=== PATIENT | male | born 1975 | race Caucasian/White ===

== ENCOUNTER 2019-01-31 11:58 | Emergency (ER) | payer OTHER ==
[~2019-01-31] VITALS: Ht 170.2 cm; Wt 86.4 kg
[2019-01-31 11:58] VITALS: BP 143/65
--- NOTE | 2019-01-31 13:00 | REP ---
RIGHT SHOULDER, THREE VIEWS: HISTORY: Injury. There is no acute fracture or dislocation. The joint spaces are normal in appearance. IMPRESSION: There is no acute fracture or dislocation. Electronically Signed by Brad Lao MD 01/31/2019 01:02 P
== END 2019-01-31 13:00 | disposition home or self-care (01) ==
LOC: M ED 11:58
DX: S49.91XA Unspecified injury of right shoulder and upper arm, initial encounter (principal); X50.0XXA Overexertion from strenuous movement or load, initial encounter; Y92.89 Other specified places as the place of occurrence of the external cause

== ENCOUNTER → 2021-01-11 | Outpatient (CLI) | payer OTHER ==
--- NOTE | 2021-01-11 12:38 | REP ---
INDICATION: F/U FX. COMPARISON: None. TECHNIQUE: AP, lateral, bilateral oblique views of the right hand. FINDINGS: There is a comminuted mildly angulated fracture involving the 5th metacarpal bone (boxer's fracture) with overlying soft tissue swelling. Remainder of the examination is normal. IMPRESSION: Acute boxer's fracture 1st metacarpal bone. <Electronically signed by Mj Perez > 01/11/21 [id number]
== END ==
LOC: M SOG 11:29
PROVIDERS: ATTEND Orthopaedic Surgery Sports Medicine
DX: S62.336A Displaced fracture of neck of fifth metacarpal bone, right hand, initial encounter for closed fracture (principal); X58.XXXA Exposure to other specified factors, initial encounter; Y92.9 Unspecified place or not applicable; Y93.9 Activity, unspecified; Y99.9 Unspecified external cause status

== ENCOUNTER → 2021-01-25 | Outpatient (CLI) | payer OTHER ==
--- NOTE | 2021-01-25 13:53 | REP ---
INDICATION: F/U FX. COMPARISON: 01/11/2021 TECHNIQUE: Four views FINDINGS: The boxer's fracture seen previously has increased in angulation since the prior exam. There are no other significant changes. IMPRESSION: As above <Electronically signed by Tye Arias > 01/25/21 [id number]
== END ==
LOC: M SOG 13:17
PROVIDERS: ATTEND Orthopaedic Surgery Sports Medicine
DX: S62.336D Displaced fracture of neck of fifth metacarpal bone, right hand, subsequent encounter for fracture with routine healing (principal)

== ENCOUNTER → 2021-11-20 | Outpatient (REF) | payer OTHER | LOC: M LAB REF 08:27 | PROVIDERS: ATTEND Ophthalmology | DX: D23.111 Other benign neoplasm of skin of right upper eyelid, including canthus (principal) ==

== ENCOUNTER → 2025-06-23 | Day surgery (SDC) | payer OTHER ==
[~2025-06-23] VITALS: Ht 170.2 cm; Wt 83.9 kg
[~2025-06-23] MED LIST: ATOR1TAB21 PO; CETI-24 PO; LISI10TA22 PO; OMEP-173 PO; SEMA1PEN4 SQ
== END | disposition home or self-care (01) ==
LOC: M OPP 10:18
PROVIDERS: ATTEND Surgery
DX: Z53.9 Procedure and treatment not carried out, unspecified reason (principal)

== ENCOUNTER 2025-06-28 06:52 | Day surgery (SDC) | payer OTHER ==
[~2025-06-28] VITALS: Ht 170.2 cm; Wt 86.2 kg
[2025-06-28] MEDS ORDERED: LIDOCAINE 2% 100 MG/5 ML SDV (FOR ANES.) As Ordered ONE (07:41)
[2025-06-28 07:55] VITALS: TEMP 97.4
[2025-06-28 08:11] VITALS: BP 126/85; O2SAT 98
== END 2025-06-28 08:22 | disposition home or self-care (01) ==
LOC: M OPP 06:52
PROVIDERS: ATTEND Surgery
DX: Z12.11 Encounter for screening for malignant neoplasm of colon (principal); K64.0 First degree hemorrhoids; Z79.85 Long-term (current) use of injectable non-insulin antidiabetic drugs; Z79.899 Other long term (current) drug therapy

== ENCOUNTER → 2025-09-17 | Outpatient (CLI) | payer OTHER ==
[2025-09-17 09:10] LABS: PLATELET COUNT, AUTOMATED 286 10^3/uL (150-450)
[2025-09-17 09:24] LABS: ALT/SGPT 35 U/L (7.0-40); AST/SGOT 20 U/L (<34); CALCIUM LEVEL 9.5 MG/DL (8.5-10.1); CARBON DIOXIDE LEVEL 28 MMOL/L (20-31); CHLORIDE LEVEL 104 MMOL/L (98-107); CHOLESTEROL LEVEL 155 MG/DL (<200); CHOLESTEROL RISK RATIO 2.80 (<5); CREATININE FOR GFR 0.67 MG/DL (0.70-1.30); GLOMERULAR FILTRATION RATE > 90.0 (>56); LDL CHOLESTEROL 90.0 MG/DL (<100); NON-HDL-C 99.8 MG/DL; POTASSIUM SERUM 5.0 MMOL/L (3.5-5.1); PROSTATIC SPECIFIC AG MONITOR 0.91 NG/ML (< 4.00); SODIUM LEVEL 138 MMOL/L (136-145); TRIGLYCERIDES LEVEL 49 MG/DL (<150)
== END ==
LOC: M LAB 08:15
PROVIDERS: ATTEND Physician Assistant
DX: I10 Essential (primary) hypertension (principal); E78.5 Hyperlipidemia, unspecified; R35.1 Nocturia